=== PATIENT | female | born 1995 | race Asian ===

== ENCOUNTER 2017-01-18 21:27 | Emergency (ER) | payer OTHER ==
[~2017-01-18] VITALS: Ht 167.6 cm; Wt 78.0 kg
[2017-01-18 21:29] VITALS: Ht 167.6 cm; Wt 78.0 kg
[2017-01-18] MEDS ORDERED: AMOXICILLIN/CLAV 500 MG TAB PO STA (21:41)
[2017-01-18] MEDS ORDERED: IBUPROFEN 200 MG TAB PO STA (21:41)
[2017-01-18] MEDS ORDERED: ACETAMINOPHEN 500 MG TAB PO STA (21:41)
[2017-01-18] MEDS ORDERED: AMOX1TAB9 PO (21:49)
[2017-01-18] MEDS ORDERED: ACET325T33 PO (21:49)
[2017-01-18] MEDS ORDERED: IBUP-1542 PO (21:49)
--- NOTE | 2017-01-18 21:52 | ERD ---
ER Documentation Chief Complaint Date/Time DATE: 01/18/17 TIME: 21:52 Chief Complaint sore throat x 3 days w/ fever HPI This is a 21-year-old female presenting to the emergency department complaining of a sore throat, fever for the past 3 days. Patient complains of pain 8 out of 10. She denies cough, congestion. She states she took Motrin at 7:30 PM ROS All systems reviewed and are negative except as per history of present illness. Medications Home Meds Active Scripts Ibuprofen* (Ibuprofen*) 600 Mg Tablet, 600 MG PO Q6H Y for PAIN, #30 TAB Prov:MISHA ASHLEY PA-C 01/18/17 Acetaminophen* (Tylenol*) 325 Mg Tablet, 2 TAB PO Q4 Y for PAIN AND OR ELEVATED TEMP, #30 TAB Prov:MISHA ASHLEY PA-C 01/18/17 Amoxicillin/Potassium Clav (Amox-Clav 500-125 mg Tablet) 500-125 mg Tab, 1 TAB PO BID for 10 Days, TAB Prov:MISHA ASHLEY PA-C 01/18/17 Allergies Allergies: Coded Allergies: No Known Allergy (Unverified , 01/18/17) PMhx/Soc History of Surgery: No Anesthesia Reaction: No Hx Neurological Disorder: No Hx Respiratory Disorders: No Hx Cardiac Disorders: No Hx Psychiatric Problems: No Hx Miscellaneous Medical Probl: No Hx Alcohol Use: No Hx Substance Use: No Hx Tobacco Use: No Physical Exam Vitals Vital Signs Date Time Temp Pulse Resp B/P Pulse Ox O2 Delivery O2 Flow Rate FiO2 01/18/17 21:29 100.6 126 20 14/81 98 Physical Exam GENERAL: well-developed/well-nourished, in no apparent distress, non-toxic appearing HEAD: NC/AT, no swelling noted in frontal or maxillary areas EARS: bilateral tympanic membrane is intact without erythema or effusion NARES: congested THROAT: Oropharynx erythematous with tonsillar exudates bilaterally EYES: Conjunctiva normal NECK: Cervical lymphadenopathy in the right PULM: CTA bilaterally, no rales, rhonchi, or wheezing heard CV: Normal S1S2, RRR, good capillary refill GI: Soft, non-distended, normal bowel sounds, non-tender BACK: No midline tenderness, no masses EXT No clubbing, cyanosis, or edema NEURO: Alert and Orientated SKIN: Intact, normal turgor PSYCH: Normal mood and mentation Results 24 hrs Current Medications Medications (Trade) Dose Ordered Sig/Gissell Route PRN Reason Start Time Stop Time Status Last Admin Dose Admin Ibuprofen (Motrin) 400 mg ONCE STAT PO 01/18/17 21:41 01/18/17 21:43 DC 01/18/17 21:47 Acetaminophen (Tylenol Tab) 1,000 mg ONCE STAT PO 01/18/17 21:41 01/18/17 21:43 DC 01/18/17 21:47 Amoxicillin/ Clavulanate Potassium (Augmentin) 500 mg ONCE STAT PO 01/18/17 21:41 01/18/17 21:43 DC Procedures/MDM This is a 21-year-old female presenting to the emergency room with fever and pharyngitis, most consistent with strep pharyngitis. On examination patient had bilateral tonsillar exudates, lymphadenopathy, fever and stated no history of cough. There was no evidence of any peritonsillar abscess or retropharyngeal abscess. No evidence of Constantino's angina. In the ED patient was given Motrin, Tylenol and Augmentin. Patient is stable and afebrile after medications to be discharged home. Prescription for Augmentin, ibuprofen and Tylenol was provided. Discussed return to the ER for any worsening signs or symptoms. She understands and agrees with this plan Departure Diagnosis: Primary Impression: Strep pharyngitis Condition: Fair Patient Instructions: Pharyngitis, Strep (Presumed) Additional Instructions: FOLLOW UP WITH YOUR PRIMARY CARE PHYSICIAN TOMORROW.Return to this facility if you are not improving as expected. Take all medicines as directed. Return to this facility if you are not improving as expected. MISHA ASHLEY PA-C January 18, 2017 21:52
== END 2017-01-18 22:31 | disposition home or self-care (01) ==
LOC: FTE 21:27
DX: J02.0 Streptococcal pharyngitis (principal)
CPT/HCPCS: Z7502; Z7610; 99283